=== PATIENT | female | born 1985 | race African-American/Black ===

== ENCOUNTER 2020-05-04 23:24 | Emergency (ER) | payer SELFPAY ==
--- NOTE | 2020-05-05 02:37 | EDPHYS ---
Physician Documentation [facility] Name: Felicia Taylor Age: 34 yrs Sex: Female : 1985 Arrival Date: 05/04/2020 Time: 23:25 Bed 5 Private MD: ED Physician Gabriel Nassar HPI: 05/05 02:31 This 34 yrs old Black Female presents to ER via Ambulatory with complaints of Nasal shlomo Congestion, Productive Cough. 02:31 The patient or guardian reports cough, described as mild. Onset: The symptoms/episode shlomo began/occurred 2 day(s) ago. Severity of symptoms: At their worst the symptoms were mild, in the emergency department the symptoms are unchanged. Modifying factors: The symptoms are alleviated by nothing, the symptoms are aggravated by nothing. Associated signs and symptoms: The patient has no apparent associated signs or symptoms. The patient has experienced similar episodes in the past. 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 - Social history:: Smoking status: Patient reports the use of cigarette tobacco products, smokes one-half pack cigarettes per day. ROS: 02:33 Constitutional: Negative for fever, chills, and weight loss, Eyes: Negative for injury, shlomo pain, redness, and discharge, Neck: Negative for injury, pain, and swelling, Cardiovascular: Negative for chest pain, palpitations, and edema, Abdomen/GI: Negative for abdominal pain, nausea, vomiting, diarrhea, and constipation, Back: Negative for injury and pain, : Negative for injury, bleeding, discharge, and swelling, MS/Extremity: Negative for injury and deformity, Skin: Negative for injury, rash, and discoloration, Neuro: Negative for headache, weakness, numbness, tingling, and seizure, Psych: Negative for depression, anxiety, suicide ideation, homicidal ideation, and hallucinations, Allergy/Immunology: Negative for hives, rash, and allergies, Endocrine: Negative for neck swelling, polydipsia, polyuria, polyphagia, and marked weight changes, Hematologic/Lymphatic: Negative for swollen nodes, abnormal bleeding, and unusual bruising. 02:33 ENT: Positive for nasal discharge, rhinorrhea, sinus congestion. 02:33 Respiratory: Positive for cough, with green sputum. Exam: 02:33 Constitutional: This is a well developed, well nourished patient who is awake, alert, shlomo and in no acute distress. Head/Face: Normocephalic, atraumatic. Eyes: Pupils equal round and reactive to light, extra-ocular motions intact. Lids and lashes normal. Conjunctiva and sclera are non-icteric and not injected. Cornea within normal limits. Periorbital areas with no swelling, redness, or edema. Neck: Trachea midline, no thyromegaly or masses palpated, and no cervical lymphadenopathy. Supple, full range of motion without nuchal rigidity, or vertebral point tenderness. No Meningismus. Chest/axilla: Normal chest wall appearance and motion. Nontender with no deformity. No lesions are appreciated. Cardiovascular: Regular rate and rhythm with a normal S1 and S2. No gallops, murmurs, or rubs. Normal PMI, no JVD. No pulse deficits. Respiratory: Lungs have equal breath sounds bilaterally, clear to auscultation and percussion. No rales, rhonchi or wheezes noted. No increased work of breathing, no retractions or nasal flaring. Abdomen/GI: Soft, non-tender, with normal bowel sounds. No distension or tympany. No guarding or rebound. No evidence of tenderness throughout. Back: No spinal tenderness. No costovertebral tenderness. Full range of motion. Skin: Warm, dry with normal turgor. Normal color with no rashes, no lesions, and no evidence of cellulitis. MS/ Extremity: Pulses equal, no cyanosis. Neurovascular intact. Full, normal range of motion. Neuro: Awake and alert, GCS 15, oriented to person, place, time, and situation. Cranial nerves II-XII grossly intact. Motor strength 5/5 in all extremities. Sensory grossly intact. Cerebellar exam normal. Normal gait. Psych: Awake, alert, with orientation to person, place and time. Behavior, mood, and affect are within normal limits. 02:33 Musculoskeletal/extremity: DVT Exam: No signs of deep vein thrombosis. no pain, no swelling, no tenderness, negative Homans' sign noted on exam, no appreciated bluish discoloration, no erythema, no increased warmth. Vital Signs: 00:31 BP 122 / 81; Pulse 89; Resp 18; Temp 98.8(O); Pulse Ox 97% on R/A; Weight 108.32 kg lp1 (M); Height 5 ft. 2 in. (157.48 cm); 02:50 BP 131 / 74; Pulse 96; Resp 20; Temp 97.7; Pulse Ox 96% on R/A; rr5 00:31 Body Mass Index 43.68 (108.32 kg, 157.48 cm) lp1 MDM: 02:23 Patient medically screened. [facility] 02:34 Data reviewed: vital signs, nurses notes. [facility] 02:36 Differential Diagnosis: Bronchitis Influenza Sinusitis Pharyngitis Pneumonia. 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 ED course: non toxic , well hydrated, covid x 2. Administered Medications: No medications were administered Disposition: 05/05/20 02:36 Discharged to Home. Impression: Acute upper respiratory infection, unspecified. - Condition is Stable. - Discharge Instructions: Upper Respiratory Infection, Adult, Cool Mist Vaporizer. - Prescriptions for Amoxicillin 500 mg Oral Capsule - take 1 capsule by ORAL route every 8 hours for 10 days; 30 tablet. Aury- D 12 Hour 60-120 mg Oral Tablet Sustained Release 12 hr - take 1 tablet by ORAL route every 12 hours As needed; 20 tablet. - Medication Reconciliation Form, Thank You Letter, Antibiotic Education, Prescription Opioid Use form. - Follow up: Private Physician; When: 2 - 3 days; Reason: Recheck today's complaints, Continuance of care, Re-evaluation by your physician. - Problem is new. - Symptoms have improved. Signatures: Gabriel Nassar MD MD cha Pena, Laura RN RN lp1 Son Richmond, RN RN rr5 Corrections: (The following items were deleted from the chart) 03:06 02:36 05/05/2020 02:36 Discharged to Home. Impression: Acute upper respiratory rr5 infection, unspecified. Condition is Stable. Forms are Medication Reconciliation Form, Thank You Letter, Antibiotic Education, Prescription Opioid Use. Follow up: Private Physician; When: 2 - 3 days; Reason: Recheck today's complaints, Continuance of care, Re-evaluation by your physician. Problem is new. Symptoms have improved. shlomo
--- NOTE | 2020-05-05 02:37 | ER ---
Nurse's Notes [facility] Name: Felicia Taylor Age: 34 yrs Sex: Female : 1985 Arrival Date: 05/04/2020 Time: 23:25 Bed 5 Private MD: Diagnosis: Acute upper respiratory infection, unspecified Presentation: 05/05 00:28 Chief complaint: Patient states: Nasal congestion, cough that began today; Denies any lp1 fever; States coughing up some flem today. Coronavirus screen: Patient denies a cough. Patient denies shortness of breath or difficulty breathing. Patient denies measured and/or subjective temperature greater than 100.4F prior to today's visit. Patient denies travel on a cruise ship or to a country the [facility] currently lists as an affected area. Patient denies contact with known and/or suspected case of COVID-19. States prior testing is Negative. Ebola Screen: No symptoms or risks identified at this time. Risk Assessment: Do you want to hurt yourself or someone else? Patient reports no desire to harm self or others. Onset of symptoms was May 05, 2020. 00:28 Method Of Arrival: Ambulatory lp1 00:28 Acuity: PRICILA 4 lp1 00:31 Initial Sepsis Screen: Does the patient meet any 2 criteria? No. Patient's initial lp1 sepsis screen is negative. Does the patient have a suspected source of infection? No. Patient's initial sepsis screen is negative. 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 - Social history:: Smoking status: Patient reports the use of cigarette tobacco products, smokes one-half pack cigarettes per day. Screenin:30 Abuse screen: Denies threats or abuse. Denies injuries from another. Nutritional lp1 screening: No deficits noted. Tuberculosis screening: No symptoms or risk factors identified. Fall Risk None identified. Assessment: 02:20 General: Appears in no apparent distress. comfortable, Behavior is calm, cooperative, rr5 appropriate for age. Pain:. Neuro: Level of Consciousness is awake, alert, obeys commands, Oriented to person, place, time, situation. Cardiovascular: Capillary refill < 3 seconds Patient's skin is warm and dry. Respiratory: Reports cough that is congestion Airway is patent Respiratory effort is even, unlabored, Respiratory pattern is regular, symmetrical. GI: Abdomen is round non-distended. : No signs and/or symptoms were reported regarding the genitourinary system. EENT: No signs and/or symptoms were reported regarding the EENT system. Derm: Skin is intact, is healthy with good turgor, Skin temperature is warm. Musculoskeletal: Circulation, motion, and sensation intact. Capillary refill < 3 seconds. 02:55 Reassessment: Patient appears in no apparent distress at this time. Patient is alert, rr5 oriented x 3, equal unlabored respirations, skin warm/dry/pink. discharge instruction given and explained without complaints made. Vital Signs: 00:31 BP 122 / 81; Pulse 89; Resp 18; Temp 98.8(O); Pulse Ox 97% on R/A; Weight 108.32 kg lp1 (M); Height 5 ft. 2 in. (157.48 cm); 02:50 BP 131 / 74; Pulse 96; Resp 20; Temp 97.7; Pulse Ox 96% on R/A; rr5 00:31 Body Mass Index 43.68 (108.32 kg, 157.48 cm) lp1 ED Course: 07 23:25 Patient arrived in ED. cl3 07/09 00:29 Triage completed. lp1 00:30 Arm band placed on right wrist. lp1 02:20 Patient has correct armband on for positive identification. Bed in low position. Call rr5 light in reach. 02:20 No provider procedures requiring assistance completed. Patient did not have IV access rr5 during this emergency room visit. 02:23 Gabriel Nassar MD is Attending Physician. shlomo 02:30 Son Richmond RN is Primary Nurse. rr5 Administered Medications: No medications were administered Outcome: 02:36 Discharge ordered by . shlomo 02:50 Discharged to home ambulatory. rr5 02:50 Condition: stable 02:50 Discharge instructions given to patient, Instructed on discharge instructions, follow up and referral plans. medication usage, Demonstrated understanding of instructions, follow-up care, medications, Prescriptions given X 2. 03:06 Patient left the ED. rr5 Signatures: Gabriel Nassar MD MD cha Pena, Laura, RN RN lp1 Son Richmond RN RN rr5 Narinder Carrera cl3
[2020-05-05 03:36] VITALS: BP 131/74; TEMP 97.7; O2SAT 96
== END 2020-05-05 03:06 | disposition home or self-care (01) ==
LOC: ER 23:24
DX: J06.9 Acute upper respiratory infection, unspecified (principal)
CPT/HCPCS: 99282

== ENCOUNTER 2020-10-26 06:51 | Emergency (ER) | payer OTHER, SELFPAY ==
--- OUTSIDE RECORDS SUMMARY | 2020-10-26 06:53 | XMS REPORT | Continuity of Care Document ---
:1985 Author Organization [facility] Address [address] [place] [address] Care Team Providers Name Role Phone Unavailable Unavailable Unavailable Problems This patient has no known problems. Allergies, Adverse Reactions, Alerts This patient has no known allergies or adverse reactions. Medications This patient has no known medications. Procedures This patient has no known procedures. Results This patient has no known results.
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
[2020-10-26 07:59] VITALS: BP 115/85; TEMP 98; O2SAT 98
== END 2020-10-26 07:54 | disposition home or self-care (01) ==
LOC: ER 06:51
DX: R07.9 Chest pain, unspecified (principal); V48.5XXA Car driver injured in noncollision transport accident in traffic accident, initial encounter
CPT/HCPCS: 99281

== ENCOUNTER 2021-05-15 05:49 | Inpatient (IN) | payer OTHER ==
--- OUTSIDE RECORDS SUMMARY | 2021-05-15 06:13 | XMS REPORT | Continuity of Care Document ---
:1985 Author Organization [facility] Address [address] [place] [address] Care Team Providers Name Role Phone Unavailable Unavailable Unavailable Problems This patient has no known problems. Allergies, Adverse Reactions, Alerts This patient has no known allergies or adverse reactions. Medications This patient has no known medications. Procedures This patient has no known procedures. Results This patient has no known results.
[2021-05-15] MEDS ORDERED: METHYLERGONOVINE 0.2MG/ML AMP IM PRN ×2 (07:03→17:10)
[2021-05-15] MEDS ORDERED: CARBOPROST TROME 250 MCG/ML IM PRN (07:03)
[2021-05-15] MEDS ORDERED: Ringers Lactate 1,000 ML IV PRN ×2 (07:03→15:27)
[2021-05-15] MEDS ORDERED: OXYTOCIN/LR 20 UNIT/1,000 ML BAG IV ONE (07:25)
[2021-05-15 07:46] LABS: Absolute Lymphocytes (CBC) 1.6 K/uL (0.7-4.9); Basophils % 0.4 % (0-1.3); Hematocrit 28.2 % (36.0-45.0); Lymphocytes % 18.4 % (15.3-44.8); RBC Red Blood Cell Count 3.93 M/uL (3.86-4.86)
--- NOTE | 2021-05-15 07:58 | PREOPHP ---
Date of Admission: 05/15/2021 35-year-old primigravida, 39 weeks 1 day, followed antepartum, noted to be care for ad iglesias. Otherwise no other major problems. Rh positive, immune to rubella, strep negative. Says las t night around 10:30 or so, thought her bag water broke and then she thought she just urinated on her self, so did not come in until this morning, is prateek mildly every 2 to 3 minutes. She is 1 cm and the baby is still at -1 to -2 station, but fairly well applied to the cervix, 50% effaced, bag w ater is indeed ruptured clear fluid, was started on Pitocin. Anticipate delivery sometime later shweta hzd. Family History: Mother with hypertension. Grandmother with stroke. Mother with diabetes. Grandmot her with cancer. Allergies: NO ALLERGIES. Medications: vitamins prior to admission. Social History: Does not smoke. Physical Examination: HEENT: Clear. Pupils equal, round, reactive to light and accommodation. Conjunctivae well perfused . No oral, lingual, or buccal lesions. Chest and Lungs: Clear. Heart: Without murmurs, thrills, heaves, or rubs. Breasts: Without masses on previous visits. Abdomen: Massively obese. Extremities: Clear. Pelvic: As stated 39 weeks 1 day with rupture of membranes. Assessment And Plan: We will begin augmentation. Anticipate delivery sometime later today. JHOANA/MOLLY Voice ID: [id number]
[2021-05-15] MEDS ORDERED: OXYTOCIN/LR 20 UNITS/1,000 ML BAG IV SCH (08:00)
[2021-05-15] MEDS ORDERED: Ringers Lactate 1,000 ML IV SCH (08:00)
[2021-05-15 08:04] LABS: Urine Appearance TURBID (Clear); Urine Blood 2+ (Negative); Urine Color DK YELLOW (Yellow); Urine Glucose NEGATIVE (Negative); Urine Protein 1+ (Negative); Urine Specific Gravity 1.025 (1.005-1.030); Urine pH 6.5 (5.0-7.0)
[2021-05-15 08:17] LABS: Urine Bilirubin NEGATIVE (Negative); Urine Microscopic Reflex ORDER UMIC
[2021-05-15 08:29] LABS: Urine Amorphous Sediment 1+ /HPF (NONE SEEN); Urine Bacteria <20 /HPF (<20); Urine Mucus 1+ /HPF (NONE SEEN)
[2021-05-15] MEDS: BUTORPHANOL 1 MG/ML INJ IV PRN ×2 (10:15→14:15)
[2021-05-15] MEDS: PROMETHAZINE INJ 25 MG/ML AMP IM PRN ×2 (10:15→14:15)
--- NOTE | 2021-05-15 12:07 | PN ---
The patient is on 12 milliunits of Pitocin, prateek every 2 minute. She has had 1 mg of Stadol, 25 mg of Phenergan. Pelvic exam shows absolutely no change from this morning. In fact, I think the baby might be even a bit higher. Baby looks good on the monitor. Her vital signs are stable. We wi ll continue to increase the Pitocin. At this point, we have not been in labor long enough to know if the patient will make any progress. I told her though that by about 4 this afternoon, which would b e about 5 hours now, if she makes no progress, we will start considering the . JHOANA/MOLLY Voice ID: [id number] Report ID: [id number]
--- NOTE | 2021-05-15 13:27 | PN ---
The patient is now on 18 milliunits of Pitocin, prateek every 2 minutes. She has back discomfort . The baby is posterior, I believe, we have instructed her on pelvic rocks. Baby still looks good o n the monitor. She is still 1 cm, possibly slightly lower than before. No major change. We will ch pat her in a couple of hours and see what kind of progress we are making. JHOANA/MOLLY Voice ID: [id number] Report ID: [id number]
[2021-05-15] MEDS ORDERED: CEFAZOLIN/SWI 2gm 2 GM/20 ML SYR IVP SCH (15:45)
[2021-05-15] MEDS ORDERED: NA CIT/CITRIC AC 30 ML ORAL UDC PO ONE (16:00)
[2021-05-15] MEDS ORDERED: CEFAZOLIN 2 GM in NA CHLORIDE 0.9% 100 ML IVPB SCH (16:00)
[2021-05-15] MEDS ORDERED: METOCLOPRAMIDE 10 MG/2mL INJ IV SCH (16:00)
[2021-05-15] MEDS ORDERED: FAMOTIDINE 20 MG/2 ML VIAL IV SCH (16:00)
[2021-05-15] MEDS ORDERED: MORPHINE SULFATE/PF 1 MG/ML (10 ML AMP) ONE (16:12)
--- NOTE | 2021-05-15 16:43 | PREOPHP ---
Date of Admission: 05/15/2021 The patient came in this morning with rupture of membranes, 1 cm. She has been put on Pitocin as she prateek every 2-3 minutes. She is on 21 milliunits and still has made no cervical change since she came in this morning. Baby is vertex, still the same station. Has not descended whatsoever. Th e baby looks good on the monitor. Her vital signs are stable. I told her we could wait another 2-3 hours and see if she made any change, but the patient wishes to proceed with at this point. Infection; blood loss; anesthetic complications; injury to bladder, bowel, ureter; postoperative com plications; clots in legs; pneumonia discussed. The patient knows fully well this does not constitut e all the possible problems that could occur during or following surgery. We will call Anesthesia an d make preparations at this point, type and screen the patient, Bonilla catheter. 2 g of Ancef ordered . Her family history and all the other parts of the history and physical dictated this morning are s till relevant and no change. Heart and lungs are clear. We will proceed with expeditiously . JHOANA/MOLLY Voice ID: [id number]
[2021-05-15] MEDS ORDERED: EPHEDRINE SULF 50 MG/ML VIAL ONE (16:45)
[2021-05-15] MEDS ORDERED: OXYTOCIN 10 UNIT/ML ML IV ONE ×2 (16:57)
[2021-05-15] MEDS ORDERED: Oxycodone HCl/Acetaminophen 1 TAB TAB PO PRN ×2 (17:10)
[2021-05-15] MEDS ORDERED: ONDANSETRON 4 MG (ODT) TAB PO PRN (17:10)
[2021-05-15] MEDS ORDERED: ONDANSETRON 4 MG/2 ML VIAL IV PRN (17:10)
[2021-05-15] MEDS ORDERED: DIPHENHYDRAMINE 25 MG TAB/CAP PO PRN (17:10)
[2021-05-15] MEDS ORDERED: ACETAMINOPHEN 500 MG TAB PO PRN ×2 (17:10)
[2021-05-15] MEDS ORDERED: BISACODYL 10 MG RECTAL SUPP PR PRN (17:10)
[2021-05-15] MEDS ORDERED: CEFAZOLIN/SWI 1gm 1 GM/10 ML SYR IVP ONE (17:30)
--- NOTE | 2021-05-15 17:58 | OP ---
Surgeon: Gregory Morse MD Commercial Esc[employer] Officer: Dr. Krystian Short was administrative support assistant surgeon. Indications: A 35-year-old, primigravida, at 39 weeks 1 day, came in with rupture of membranes, rogelio r fluid, early labor. Augmentation of the labor. The patient never progressed beyond 1 cm. Baby ne genevieve descended below or -2 station in spite of good contractions and Pitocin stimulation up to 21 mill iunits. After discussion with the patient, it was decided to proceed with . Infection; bloo d loss; anesthetic complications; injury to bladder, bowel, ureter; postoperative complications; clot s in legs; pneumonia discussed. The patient knows fully well this does not constitute all the possib le problems that could occur during or following surgery. She also knows because she is a large pers on the possibility for complications is greater. Anesthesia: Spinal block anesthesia, Dr. Almaguer. Procedure In Detail: The patient was prepped and draped. Time-out was performed. A Pfannenstiel in cision was created. The incision was carried to the fascia. The fascia was incised. The incision c arried transversely bilaterally. Anterior fascial plane was developed with both blunt and sharp diss ection. The lower edge of the fascia was also freed from the rectus muscles. Peritoneal defect was entered. Low transverse bladder flap was developed with Metzenbaums. Low transverse uterine incisio n was created. The lower edge of the placenta was encountered. The baby was delivered without diffi culties, 7 pounds 12 ounces male infant, Apgars 9 and 10. Placenta removed manually. Uterus cleared of clot and blood and exteriorized. Cervical os dilated with ring clamp. Uterus closed with a runn ing lock stitch of 1 chromic. Mild hypotonus. A 0.2 mg of Methergine given more for prophylaxis and for actual heavy bleeding. Estimated blood loss during the procedure 800 mL. Uterus replaced in the peritoneal cavity after the cul-de-sac was cleared and the gutters were cleared of clot and blood. Reinspection of suture line showed no further bleeding. Rectus muscles were approximated using 2 sut ures of 0 Vicryl. The fascia was closed with 1 PDS running from either angle to the midline. Subcut aneous tissue closed with 2-0 plain. Dylan used for the skin. The patient tolerated all procedure s well, transferred back to her room in good condition. Final Diagnoses: Term intrauterine at 39 weeks 1 day, failure to progress in labor, primar y section, spinal block anesthesia. JHOANA/MOLLY Voice ID: [id number] Report ID: [id number]
[2021-05-15] MEDS ORDERED: D5LR 1,000 ML with OXYTOCIN 20 UNIT IV SCH ×2 (18:00)
[2021-05-15 18:51] VITALS: O2SAT 99
[2021-05-15] MEDS ORDERED: Ringers Lactate 1,000 ML IV ONE (22:31)
[2021-05-16] MEDS ORDERED: CEFAZOLIN 2 GM in NA CHLORIDE 0.9% 100 ML IVPB SCH ×2
[2021-05-16] MEDS ORDERED: CEFAZOLIN/SWI 2gm 2 GM/20 ML SYR IVP SCH (01:00)
[2021-05-16] MEDS: OXYTOCIN/LR 20 UNIT/1,000 ML BAG IV SCH ×2 (02:23→10:14)
[2021-05-16] MEDS: KETOROLAC 30 MG/ML INJ IV PRN ×3 (06:10→20:03)
[2021-05-16] MEDS: IBUPROFEN 600 MG TAB PO PRN (09:30)
[2021-05-16] MEDS ORDERED: MAGNESIUM HYDROXIDE 8% 30 ML PO PRN ×2 (10:30→17:10)
[2021-05-16 22:38] LABS: RPR (Rapid Plasma Reagin) NON-REACT (NON-REACT)
[2021-05-17 07:25] VITALS: BP 103/59; TEMP 97.7
--- NOTE | 2021-05-17 07:42 | DS ---
A 35-year-old primigravida at 39 weeks 1 day, underwent primary section for failure to progr ess in labor. Delivered a 7 pound 12 ounce male infant, Apgars 9, 10, spinal block anesthesia, 800 c c blood loss. Ancef pre and postop for prophylaxis. Rh positive. Immune to rubella. Negative COVID . Negative strep. Postoperatively, afebrile, ambulating, voiding. Lochia is normal. She will be d ismissed later today to report back to my office next week for followup. To report any temperature e levation of 100 degrees or greater, severe pain, heavy bleeding, or any other type of abnormalities. She will call my office for analgesic prescription. She has had her Tdap immunization. She has no post spinal block problems. Final Diagnoses: Term intrauterine at 39 weeks 1 day, failure to progress in labor, primar y section, spinal block anesthesia, anemia on admission and continuing. The patient knows sh e is to take iron therapy and we will check her in 1 week to see if it is improving. JHOANA/MOLLY Voice ID: [id number] Report ID: [id number]
[2021-05-17] MEDS: IBUPROFEN 600 MG TAB PO PRN (09:08)
[2021-05-18 18:36] LABS: HBsAG Nonreactive (Nonreactive)
== END 2021-05-17 10:30 | disposition home or self-care (01) | DRG 788 ==
LOC: L&D 05:49 → 2ND-WC 06:11
PROVIDERS: ADMIT Specialist; ATTEND Specialist
PROC: 10D00Z1 Extraction of Products of Conception, Low, Open Approach (ICD-10-PCS; principal; 2021-05-15 16:34)
DX: O64.8XX0 Obstructed labor due to other malposition and malpresentation, not applicable or unspecified (principal); O62.0 Primary inadequate contractions; O62.2 Other uterine inertia; Z3A.39 39 weeks gestation of pregnancy; Z37.0 Single live birth; Z20.822 Contact with and (suspected) exposure to COVID-19
CPT/HCPCS: 36415; 81003; 81015; 85014; 85025; 86592; 86901; 87086; 87088; 87340; 88307; J0595; J0690; J2210; J2550; J2590; J2765; J7120; J7121; U0003